=== PATIENT | male | born 1980 | race Caucasian/White ===

== ENCOUNTER 2020-05-04 19:55 | Emergency (ER) | payer BC, OTHER ==
[2020-05-04 20:02] VITALS: BP 149/94; PULSE 100; TEMP 99; BMI 30.6
[2020-05-04] MEDS ORDERED: CEPHALEXIN MONOHYDRATE 500 MG CAPSULE (UD) PO ONE (20:04)
[2020-05-04] MEDS ORDERED: CEPHALEXIN MONOHYDRATE 500 MG CAPSULE (UD) ONE (20:06)
== END 2020-05-04 20:14 | disposition home or self-care (01) ==
LOC: FER 19:55
DX: L03.115 Cellulitis of right lower limb (principal)
CPT/HCPCS: 99284-25